=== PATIENT | male | born 1990 | race Caucasian/White ===

== ENCOUNTER 2017-02-23 23:10 | Emergency (ER) | payer MEDICAID ==
[~2017-02-23] VITALS: Ht 172.7 cm; Wt 68.0 kg
[2017-02-23 23:16] VITALS: BP 146/74
--- NOTE | 2017-02-23 23:36 | NUR ---
DENNISE LOFTON AT BEDSIDE FOR EVAL.
--- NOTE | 2017-02-23 23:43 | NUR ---
27 Y/O MALE PLACED IN BED 2. C/O FLU LIKE SYMPTOMS. PT TO BE MEDICATED WITH TYLENOL AND MOTRIN AND DISCHARGED HOME.
[2017-02-23] MEDS ORDERED: ACETAMINOPHEN ES 500 MG TABLET ONE (23:47)
[2017-02-23] MEDS ORDERED: IBUPROFEN 600 MG TABLET PO ONE (23:48)
--- NOTE | 2017-02-23 23:52 | NUR ---
PT DISCHARGED HOME WITH ACI.
[2017-02-24] MEDS ORDERED: IBUPROFEN 600 MG TABLET PO ONE
[2017-02-24] MEDS ORDERED: ACETAMINOPHEN ES 500 MG TABLET PO ONE
== END 2017-02-24 01:08 | disposition home or self-care (01) ==
LOC: ER 23:10
DX: J11.1 Influenza due to unidentified influenza virus with other respiratory manifestations (principal)
CPT/HCPCS: 99283; A4606; Z7610